=== PATIENT | male | born 1995 ===

== ENCOUNTER 2019-11-16 09:05 | Inpatient (IN) | payer SELFPAY ==
[2019-11-16 11:04] LABS: Bacteria,Urine 1+ /HPF (Negative); Bilirubin,Urine NEG (Negative); Blood,Urine NEG (Negative); Color,Urine Yellow (Yellow); Mucus,Urine FEW /HPF; Urobilinogen,Urine < 2.0 mg/dL (<2.0)
[2019-11-16] MEDS ORDERED: ONDANSETRON 4 MG/2 ML INJ IV ONE (11:11)
[2019-11-16] MEDS ORDERED: MORPHINE 4 MG/1 ML INJ IV ONE (11:11)
[2019-11-16] MEDS ORDERED: SODIUM CHLORIDE 0.9% 1000 ML 1,000 ML IV ONE (11:11)
[2019-11-16 11:12] LABS: Basophils % (Auto) 0.3 % (0.0-1.8); Eosinophils # (Auto) 0.1 K/mm3 (0.0-0.4); Eosinophils % (Auto) 0.4 % (0.0-4.3); Hematocrit 47.1 % (35.5-45.6); Hemoglobin 15.6 gm/dl (11.8-15.2); Lymphocytes # (Auto) 1.2 K/mm3 (1.2-5.4); Lymphocytes % (Auto) 8.7 % (13.4-35.0); Mean Corpuscular HGB Conc 33 % (32-34); Mean Corpuscular Volume 83 fl (84-94); Monocytes # (Auto) 0.8 K/mm3 (0.0-0.8); Monocytes % (Auto) 5.5 % (0.0-7.3); Platelet Count 226 K/mm3 (140-440); Red Blood Count 5.68 M/mm3 (3.65-5.03); Red Cell Distribution Width 12.6 % (13.2-15.2)
[2019-11-16 11:32] LABS: Alanine Aminotransferase 219 units/L (7-56); Albumin 4.6 g/dL (3.9-5); BUN/Creatinine Ratio 13; Blood Urea Nitrogen 9 mg/dL (9-20); Calcium 9.7 mg/dL (8.4-10.2); Hemolysis Index 9
--- NOTE | 2019-11-16 14:04 | Cat Scan Report ---
CT ABDOMEN AND PELVIS CONTRAST HISTORY: Abdominal pain for 2 days. COMPARISON: No relevant comparison imaging. TECHNIQUE: Routine abdominal and pelvic CT exam performed following intravenous contrast administrat ion.. 100 cc of Omnipaque 300 was injected intravenously without incident. Consent was obtained prior to the administration of the contrast. All CT scans at this location are performed using CT dose red uction for ALARA by means of automated exposure control. FINDINGS: CT ABDOMEN: Lung Bases: No significant abnormality. Liver: No significant abnormality. Biliary: No significant abnormality. Spleen: No significant abnormality. Unenlarged. Pancreas: No significant abnormality. Adrenals: No significant abnormality. Kidneys: No significant abnormality. Lymphatics: No lymphadenopathy. Vasculature: No significant abnormality. Bowel/Peritoneum: No significant abnormality. No free air. No free fluid. Inflamed wall thickened, di stended appendix with no periappendiceal abscess. The appendix measures 10 mm maximum dimension. Ther e is periappendiceal stranding and mild periappendiceal fluid. CT PELVIC: : Normal urinary bladder, prostate and seminal vesicles. Lymphatics: No lymphadenopathy. Osseous Structures: No aggressive appearing osseous lesions. Additional Findings: None IMPRESSION: 1. Acute appendicitis without rupture. 2. No other significant finding. Verbal report was given to Noah MAIN in the emergency department on 11/16/2019 at13:58 EST. Signer Name: Jeffery Hackett MD Signed: 11/16/2019 1:59 PM Workstation Name: [id number]
[2019-11-16] MEDS ORDERED: PIPERACIL/TAZOBACTA 4.5/NS 100 4.5 GM/100 ML VIAL IV ONE (14:11)
--- NOTE | 2019-11-16 14:22 | Emergency Department Report ---
ED Abdominal Pain HPI - General Chief Complaint: Abdominal Pain Stated Complaint: ABD PAIN Time Seen by Provider: 11/16/19 10:12 Source: patient, family Mode of arrival: Ambulatory Limitations: Language Barrier - History of Present Illness Initial Comments: This is a 24-year-old male nontoxic, well nourished in appearance, no acute signs of distress presents to the ED with c/o of nausea and vomiting and abdominal pain 1 day. Patient describes vomiting as food content and yellow gastric acid. Patient describes abdominal pain as cramping and aching with level of 10/10 to epigastric and RLQ. Patient denies chest pain, short of breath, fever, chills, headache, stiff neck, numbness or tingling. Patient denies any diarrhea or constipation. Patient denies any recent travels. Patient denies any allergies or significant PMH. MD Complaint: abdominal pain -: days(s) Location: RLQ, epigastric Radiation: none Migration to: no migration Severity: severe Severity scale (0 -10): 10 Quality: cramping, aching Consistency: constant Improves With: nothing Worsens With: nothing Associated Symptoms: nausea, vomiting. denies: diarrhea, fever, chills, constipation, dysuria, hematemesis, hematochezia, melena, hematuria, anorexia, syncope - Related Data Home Medications Medication Instructions Recorded Confirmed Last Taken No Known Home Medications [No 11/16/19 11/16/19 Unknown Reported Home Medications] Allergies Allergy/AdvReac Type Severity Reaction Status Date / Time No Known Allergies Allergy Unverified 11/16/19 09:08 ED Review of Systems ROS: Stated complaint: ABD PAIN Other details as noted in HPI Constitutional: denies: chills, fever Eyes: denies: eye pain, eye discharge, vision change ENT: denies: ear pain, throat pain Respiratory: denies: cough, shortness of breath, wheezing Cardiovascular: denies: chest pain, palpitations Endocrine: no symptoms reported Gastrointestinal: abdominal pain, nausea, vomiting. denies: diarrhea Genitourinary: denies: urgency, dysuria Musculoskeletal: denies: back pain, joint swelling, arthralgia Skin: denies: rash, lesions Neurological: denies: headache, weakness, paresthesias Psychiatric: denies: anxiety, depression Hematological/Lymphatic: denies: easy bleeding, easy bruising ED Past Medical Hx - Past Medical History Previous Medical History?: No - Surgical History Past Surgical History?: No - Social History Smoking Status: Never Smoker Substance Use Type: None - Medications Home Medications: Home Medications Medication Instructions Recorded Confirmed Last Taken Type No Known Home Medications [No 11/16/19 11/16/19 Unknown History Reported Home Medications] ED Physical Exam - General Limitations: Language Barrier General appearance: alert, in no apparent distress - Head Head exam: Present: atraumatic, normocephalic - Eye Eye exam: Present: normal appearance - Neck Neck exam: Present: normal inspection, full ROM. Absent: tenderness, meningismus, lymphadenopathy - Respiratory Respiratory exam: Present: normal lung sounds bilaterally. Absent: respiratory distress, wheezes, rales, rhonchi, stridor, chest wall tenderness, accessory muscle use, decreased breath sounds, prolonged expiratory - Cardiovascular Cardiovascular Exam: Present: regular rate, normal rhythm, normal heart sounds. Absent: bradycardia, tachycardia, irregular rhythm, systolic murmur, diastolic murmur, rubs, gallop - GI/Abdominal GI/Abdominal exam: Present: soft, tenderness (RLQ), normal bowel sounds. Absent: distended, guarding, rebound, rigid, diminished bowel sounds - Extremities Exam Extremities exam: Present: normal inspection, full ROM - Back Exam Back exam: Present: normal inspection, full ROM. Absent: tenderness, CVA tenderness (R), CVA tenderness (L), muscle spasm, paraspinal tenderness, vertebral tenderness, rash noted - Neurological Exam Neurological exam: Present: alert, oriented X3, normal gait - Psychiatric Psychiatric exam: Present: normal affect, normal mood - Skin Skin exam: Present: warm, dry, intact, normal color. Absent: rash ED Course Vital Signs 11/16/19 09:41 Temperature 97.3 F L Pulse Rate 70 Respiratory 18 Rate Blood Pressure 154/91 [Right] O2 Sat by Pulse 96 Oximetry - Reevaluation(s) Reevaluation #1: 11/16/19 14:20 Patient is speaking in full sentences with no signs of distress noted. ED Medical Decision Making - Lab Data Result diagrams: 11/16/19 10:37 11/16/19 10:37 - Medical Decision Making This is a 24-year-old male that presents with acute appendicitis. Patient is stable and was examined by me. Patient has been placed on n.p.o. Patient received Zosyn. Patient also received resuscitation in the ER. CT scan obtained dictated by radiologist. Dr. Gee consulted. Admitted with Dr. Cladwell. At time of discharge, the patient does not seem toxic or ill in appearance. No acute signs of distress noted. Patient agrees to admission treatment plan of care. No further questions noted by the patient. Critical care attestation.: If time is entered above; I have spent that time in minutes in the direct care of this critically ill patient, excluding procedure time. ED Disposition Clinical Impression: Acute appendicitis Qualifiers: Acute appendicitis type: unspecified acute appendicitis type Qualified Code(s): K35.80 - Unspecified acute appendicitis Nausea & vomiting Qualifiers: Vomiting type: unspecified Vomiting Intractability: non-intractable Qualified Code(s): R11.2 - Nausea with vomiting, unspecified Disposition: DC-09 OP ADMIT IP TO THIS HOSP Is pt being admited?: Yes Condition: Stable
[2019-11-16] MEDS ORDERED: MORPHINE 2 MG/1 ML INJ IV PRN (14:23)
--- NOTE | 2019-11-16 14:46 | Consultation ---
History of Present Illness Consult date: 11/16/19 Reason for consult: abdominal pain Chief complaint: Abdominal pain - History of present illness History of present illness: 24-year-old male with no past medical history presents to the emergency room wit h right lower quadrant abdominal pain since 4:00 this morning. The pain is severe and does not radiate. He states he has had pain similar to this about 4 or 5 months ago which resolved on its own. He states he has had several episodes of nonbilious/non-bloody emesis. No fevers, chills, chest pain, shortness of breath. His last meal was for lunch today which he tolerated. Past History Past Medical History: No medical history Past Surgical History: Other (Right flank wound closure) Social history: alcohol abuse (Several beers on the weekend) Family history: no significant family history Medications and Allergies Allergies Allergy/AdvReac Type Severity Reaction Status Date / Time No Known Allergies Allergy Unverified 11/16/19 09:08 Home Medications Medication Instructions Recorded Confirmed Last Taken Type No Known Home Medications [No 11/16/19 11/16/19 Unknown History Reported Home Medications] Active Meds: Active Medications Piperacillin Sod/Tazobactam Sod (Zosyn/Ns 4.5gm/100ml) 4.5 gm in 100 mls @ 200 mls/hr IV Q8HR RICARDO; Protocol Morphine Sulfate (Morphine) 2 mg IV Q4H PRN PRN Reason: Pain, Moderate (4-6) Review of Systems All systems: negative (10 point review of systems was performed and negative except for that listed in HPI) Exam Vital Signs Temp Pulse Resp BP Pulse Ox 97.3 F L 70 18 154/91 96 11/16/19 09:41 11/16/19 09:41 11/16/19 09:41 11/16/19 09:41 11/16/19 09:41 Narrative exam: Gen.: Awake, alert, oriented 3. No apparent distress ENT: No scleral icterus or conjunctival pallor CV: S1, S2 present Respiratory: No audible wheezes Abdomen: Soft, nondistended, positive tenderness to palpation in the right lower quadrant. Positive voluntary guarding. No rebound no rigidity. Well-healed right lower flank scar Extremities: No clubbing, cyanosis, edema Results - Labs 11/16/19 10:37 11/16/19 10:37 Abnormal lab results 11/16/19 11/16/19 11/16/19 Range/Units 10:37 10:37 10:47 WBC 13.9 H (4.5-11.0) K/mm3 RBC 5.68 H (3.65-5.03) M/mm3 Hgb 15.6 H (11.8-15.2) gm/dl Hct 47.1 H (35.5-45.6) % MCV 83 L (84-94) fl RDW 12.6 L (13.2-15.2) % Lymph % (Auto) 8.7 L (13.4-35.0) % Seg Neutrophils % 85.1 H (40.0-70.0) % Seg Neutrophils # 11.8 H (1.8-7.7) K/mm3 Creatinine 0.7 L (0.8-1.5) mg/dL Glucose 204 H (75-100) mg/dL AST 91 H (5-40) units/L ALT 219 H (7-56) units/L Alkaline Phosphatase 153 H (35-129) units/L Urine pH 8.0 H (5.0-7.0) Diabetes panel 11/16/19 Range/Units 10:37 Sodium 139 (137-145) mmol/L Potassium 4.3 (3.6-5.0) mmol/L Chloride 98.4 (98-107) mmol/L Carbon Dioxide 22 (22-30) mmol/L BUN 9 (9-20) mg/dL Creatinine 0.7 L (0.8-1.5) mg/dL Glucose 204 H (75-100) mg/dL Calcium 9.7 (8.4-10.2) mg/dL AST 91 H (5-40) units/L ALT 219 H (7-56) units/L Alkaline Phosphatase 153 H (35-129) units/L Total Protein 7.7 (6.3-8.2) g/dL Albumin 4.6 (3.9-5) g/dL Calcium panel 11/16/19 Range/Units 10:37 Calcium 9.7 (8.4-10.2) mg/dL Albumin 4.6 (3.9-5) g/dL Pituitary panel 11/16/19 Range/Units 10:37 Sodium 139 (137-145) mmol/L Potassium 4.3 (3.6-5.0) mmol/L Chloride 98.4 (98-107) mmol/L Carbon Dioxide 22 (22-30) mmol/L BUN 9 (9-20) mg/dL Creatinine 0.7 L (0.8-1.5) mg/dL Glucose 204 H (75-100) mg/dL Calcium 9.7 (8.4-10.2) mg/dL Adrenal panel 11/16/19 Range/Units 10:37 Sodium 139 (137-145) mmol/L Potassium 4.3 (3.6-5.0) mmol/L Chloride 98.4 (98-107) mmol/L Carbon Dioxide 22 (22-30) mmol/L BUN 9 (9-20) mg/dL Creatinine 0.7 L (0.8-1.5) mg/dL Glucose 204 H (75-100) mg/dL Calcium 9.7 (8.4-10.2) mg/dL Total Bilirubin 0.50 (0.1-1.2) mg/dL AST 91 H (5-40) units/L ALT 219 H (7-56) units/L Alkaline Phosphatase 153 H (35-129) units/L Total Protein 7.7 (6.3-8.2) g/dL Albumin 4.6 (3.9-5) g/dL - Imaging CT scan - abdomen: report reviewed, image reviewed CT scan - pelvis: report reviewed, image reviewed Assessment and Plan 24 yo M with acute appendicitis Plan: 1. Admit to hospitalist service 2. IVF 3. NPO 4. IV abx 5. prn pain control 6. DVT ppx 7. Recommend OR for laparoscopic appendectomy, possible open. Discussed all risks, benefits, alternatives to surgery with the patient and questions answered. The patient is agreeable to proceed to the OR. Consent was obtained. Thank you, please call with questions.
[2019-11-16] MEDS ORDERED: BUPIVACAINE/PF (0.5%) 5 MG/1 ML 30 ML VIAL INFILTRATI ONE ×2 (15:45→19:26)
[2019-11-16] MEDS ORDERED: LIDOCAINE (1%) 10 MG/1 ML VIAL 20 ML MDV ONE (15:45)
[2019-11-16] MEDS ORDERED: HYDROmorphone 1 MG/1 ML INJ IV PRN ×2 (16:12→20:43)
[2019-11-16] MEDS ORDERED: ACETAMINOPHEN 325 MG TAB PO PRN (16:12)
[2019-11-16] MEDS ORDERED: ONDANSETRON 4 MG/2 ML INJ IV PRN ×2 (16:12→20:43)
--- NOTE | 2019-11-16 16:18 | History and Physical Report ---
History of Present Illness Date of examination: 11/16/19 Date of admission: 11/16/2019 Chief complaint: Right lower quadrant pain and nausea with vomiting since 4 AM in the morning. History of present illness: 24-year-old Japanese-speaking male with no significant past medical history comes in for nausea and vomiting since 4 AM. Vomited about 3-4 times. Also has a r ight lower quadrant pain which is about 7-8 on a scale of 1-10. No fever or chills. There is the first episode. Pain is sharp. Intermittent in nature. Did not eat any restaurant food. No exacerbating or relieving factors. Pain is localized to the right lower quadrant noted with no radiation. No diaphoresis. No diarrhea. Past Medical History Previous Medical History?: No Surgical History Past Surgical History?: No Social History Smoking Status: Never Smoker Substance Use Type: None Family history - Medications Home Medications: Home Medications Medication Instructions Recorded Confirmed Last Taken Type No Known Home Medications [No 11/16/19 11/16/19 Unknown History Reported Home Medications] Review of Systems ROS: Stated complaint: ABD PAIN Other details as noted in HPI Constitutional: denies: chills, fever Eyes: denies: eye pain, eye discharge, vision change ENT: denies: ear pain, throat pain Respiratory: denies: cough, shortness of breath, wheezing Cardiovascular: denies: chest pain, palpitations Endocrine: no symptoms reported Gastrointestinal: abdominal pain, nausea, vomiting. denies: diarrhea, right lower quadrant pain Genitourinary: denies: urgency, dysuria Musculoskeletal: denies: back pain, joint swelling, arthralgia Skin: denies: rash, lesions Neurological: denies: headache, weakness, paresthesias Psychiatric: denies: anxiety, depression Hematological/Lymphatic: denies: easy bleeding, easy bruising Past History Past Medical History: No medical history Past Surgical History: Other (Right flank wound closure) Social history: alcohol abuse (Several beers on the weekend) Family history: no significant family history Medications and Allergies Allergies Allergy/AdvReac Type Severity Reaction Status Date / Time No Known Allergies Allergy Unverified 11/16/19 09:08 Home Medications Medication Instructions Recorded Confirmed Last Taken Type No Known Home Medications [No 11/16/19 11/16/19 Unknown History Reported Home Medications] Active Meds: Active Medications Piperacillin Sod/Tazobactam Sod (Zosyn/Ns 4.5gm/100ml) 4.5 gm in 100 mls @ 200 mls/hr IV Q8HR RICARDO; Protocol Morphine Sulfate (Morphine) 2 mg IV Q4H PRN PRN Reason: Pain, Moderate (4-6) Exam - Constitutional Vitals: Temp Pulse Resp BP Pulse Ox 98.3 F 67 20 121/61 99 11/16/19 15:28 11/16/19 15:28 11/16/19 15:28 11/16/19 15:28 11/16/19 15:28 General appearance: Present: no acute distress, well-nourished - EENT Eyes: Present: PERRL ENT: hearing intact, clear oral mucosa - Neck Neck: Present: supple, normal ROM - Respiratory Respiratory effort: normal Respiratory: bilateral: CTA - Cardiovascular Heart rate: 78 Rhythm: regular Heart Sounds: Present: S1 & S2. Absent: rub, click - Extremities Extremities: pulses symmetrical, No edema Peripheral Pulses: within normal limits - Abdominal General gastrointestinal: Present: soft, non-tender, non-distended, normal bowel sounds Localized gastrointestinal: tender: RLQ (Pain 6/10), guarding: RLQ Male genitourinary: Present: normal - Rectal Rectal Exam: deferred - Integumentary Integumentary: Present: clear, warm, dry - Musculoskeletal Musculoskeletal: gait normal, strength equal bilaterally - Psychiatric Psychiatric: appropriate mood/affect, intact judgment & insight - Neurologic Neurologic: CNII-XII intact, moves all extremities - Allied Health Allied health notes reviewed: nursing, case management Results - Labs CBC & Chem 7: 11/16/19 10:37 11/16/19 10:37 Labs: Laboratory Last Values WBC 13.9 K/mm3 (4.5-11.0) H 11/16/19 10:37 RBC 5.68 M/mm3 (3.65-5.03) H 11/16/19 10:37 Hgb 15.6 gm/dl (11.8-15.2) H 11/16/19 10:37 Hct 47.1 % (35.5-45.6) H 11/16/19 10:37 MCV 83 fl (84-94) L 11/16/19 10:37 MCH 28 pg (28-32) 11/16/19 10:37 MCHC 33 % (32-34) 11/16/19 10:37 RDW 12.6 % (13.2-15.2) L 11/16/19 10:37 Plt Count 226 K/mm3 (140-440) 11/16/19 10:37 Lymph % (Auto) 8.7 % (13.4-35.0) L 11/16/19 10:37 [place] % (Auto) 5.5 % (0.0-7.3) 11/16/19 10:37 Eos % (Auto) 0.4 % (0.0-4.3) 11/16/19 10:37 Baso % (Auto) 0.3 % (0.0-1.8) 11/16/19 10:37 Lymph # 1.2 K/mm3 (1.2-5.4) 11/16/19 10:37 [place] # 0.8 K/mm3 (0.0-0.8) 11/16/19 10:37 Eos # 0.1 K/mm3 (0.0-0.4) 11/16/19 10:37 Baso # 0.0 K/mm3 (0.0-0.1) 11/16/19 10:37 Seg Neutrophils % 85.1 % (40.0-70.0) H 11/16/19 10:37 Seg Neutrophils # 11.8 K/mm3 (1.8-7.7) H 11/16/19 10:37 Sodium 139 mmol/L (137-145) 11/16/19 10:37 Potassium 4.3 mmol/L (3.6-5.0) 11/16/19 10:37 Chloride 98.4 mmol/L (98-107) 11/16/19 10:37 Carbon Dioxide 22 mmol/L (22-30) 11/16/19 10:37 Anion Gap 23 mmol/L 11/16/19 10:37 BUN 9 mg/dL (9-20) 11/16/19 10:37 Creatinine 0.7 mg/dL (0.8-1.5) L 11/16/19 10:37 Estimated GFR > 60 ml/min 11/16/19 10:37 BUN/Creatinine Ratio 13 % 11/16/19 10:37 Glucose 204 mg/dL (75-100) H 11/16/19 10:37 Calcium 9.7 mg/dL (8.4-10.2) 11/16/19 10:37 Total Bilirubin 0.50 mg/dL (0.1-1.2) 11/16/19 10:37 AST 91 units/L (5-40) H 11/16/19 10:37 ALT 219 units/L (7-56) H 11/16/19 10:37 Alkaline Phosphatase 153 units/L (35-129) H 11/16/19 10:37 Total Protein 7.7 g/dL (6.3-8.2) 11/16/19 10:37 Albumin 4.6 g/dL (3.9-5) 11/16/19 10:37 Albumin/Globulin Ratio 1.5 % 11/16/19 10:37 Lipase 27 units/L (13-60) 11/16/19 10:37 Urine Color Yellow (Yellow) 11/16/19 10:47 Urine Turbidity Cloudy (Clear) 11/16/19 10:47 Urine pH 8.0 (5.0-7.0) H 11/16/19 10:47 Ur Specific [place] 1.026 (1.003-1.030) 11/16/19 10:47 Urine Protein 30 mg/dl mg/dL (Negative) 11/16/19 10:47 Urine Glucose (UA) 50 mg/dL (Negative) 11/16/19 10:47 Urine Ketones Neg mg/dL (Negative) 11/16/19 10:47 Urine Blood Neg (Negative) 11/16/19 10:47 Urine Nitrite Neg (Negative) 11/16/19 10:47 Urine Bilirubin Neg (Negative) 11/16/19 10:47 Urine Urobilinogen < 2.0 mg/dL (<2.0) 11/16/19 10:47 Ur Leukocyte Esterase Neg (Negative) 11/16/19 10:47 Urine WBC (Auto) 6.0 /HPF (0.0-6.0) 11/16/19 10:47 Urine RBC (Auto) 6.0 /HPF (0.0-6.0) 11/16/19 10:47 Urine Bacteria (Auto) 1+ /HPF (Negative) 11/16/19 10:47 Urine Mucus Few /HPF 11/16/19 10:47 Urine Yeast (Budding) 2+ /HPF 11/16/19 10:47 Short CBC 11/16/19 Range/Units 10:37 WBC 13.9 H (4.5-11.0) K/mm3 Hgb 15.6 H (11.8-15.2) gm/dl Hct 47.1 H (35.5-45.6) % Plt Count 226 (140-440) K/mm3 [facility] 11/16/19 10:37 Sodium 139 Potassium 4.3 Chloride 98.4 Carbon Dioxide 22 BUN 9 Creatinine 0.7 L Glucose 204 H Calcium 9.7 Liver Function 11/16/19 Range/Units 10:37 Total Bilirubin 0.50 (0.1-1.2) mg/dL AST 91 H (5-40) units/L ALT 219 H (7-56) units/L Alkaline Phosphatase 153 H (35-129) units/L Albumin 4.6 (3.9-5) g/dL Urine 11/16/19 Range/Units 10:47 Urine Color Yellow (Yellow) Urine pH 8.0 H (5.0-7.0) Ur Specific [place] 1.026 (1.003-1.030) Urine Protein 30 mg/dl (Negative) mg/dL Urine Glucose (UA) 50 (Negative) mg/dL Short CBC 11/16/19 Range/Units 10:37 WBC 13.9 H (4.5-11.0) K/mm3 Hgb 15.6 H (11.8-15.2) gm/dl Hct 47.1 H (35.5-45.6) % Plt Count 226 (140-440) K/mm3 [facility] 11/16/19 10:37 Sodium 139 Potassium 4.3 Chloride 98.4 Carbon Dioxide 22 BUN 9 Creatinine 0.7 L Glucose 204 H Calcium 9.7 Liver Function 11/16/19 Range/Units 10:37 Total Bilirubin 0.50 (0.1-1.2) mg/dL AST 91 H (5-40) units/L ALT 219 H (7-56) units/L Alkaline Phosphatase 153 H (35-129) units/L Albumin 4.6 (3.9-5) g/dL Urine 11/16/19 Range/Units 10:47 Urine Color Yellow (Yellow) Urine pH 8.0 H (5.0-7.0) Ur Specific [place] 1.026 (1.003-1.030) Urine Protein 30 mg/dl (Negative) mg/dL Urine Glucose (UA) 50 (Negative) mg/dL - Imaging and Cardiology CT scan - abdomen: report reviewed Imaging and Cardiology: CT abdomen IMPRESSION: 1. Acute appendicitis without rupture. 2. No other significant finding. Assessment and Plan Advance Directives: Yes (Full code) VTE prophylaxis?: Chemical Plan of care discussed with patient/family: Yes - Patient Problems (1) Acute appendicitis Current Visit: Yes Status: Acute Qualifiers: Acute appendicitis type: unspecified acute appendicitis type Qualified Code(s): K35.80 - Unspecified acute appendicitis Plan to address problem: Patient has acute appendicitis on the CT abdomen Clinically also acute appendicitis Surgery consult requested for possible appendectomy IV fluids Pain management (2) Nausea & vomiting Current Visit: Yes Status: Acute Qualifiers: Vomiting type: unspecified Vomiting Intractability: non-intractable Qualified Code(s): R11.2 - Nausea with vomiting, unspecified Plan to address problem: Secondary to appendicitis Continue Zofran 4 mg oral disintegrating tablets RRR IV Patient is kept n.p.o. (3) Dehydration Current Visit: Yes Status: Acute Plan to address problem: Secondary to persistent nausea and vomiting Clear fluids after surgery. (4) DVT prophylaxis Current Visit: Yes Status: Acute Plan to address problem: On SCDs and GI prophylaxis Heparin after the surgery.
--- NOTE | 2019-11-16 16:47 | Anesthesia Day of Surgery ---
Anesthesia Day of Surgery - Day of Surgery Patient Examined: Yes Patient H&P Reviewed: Yes Patient is NPO: No (Had pizza around 1230)
[2019-11-16] MEDS ORDERED: FAMOTIDINE 20 MG/2 ML INJ IV ONE (16:48)
--- NOTE | 2019-11-16 16:50 | Anesthesia Consultation ---
Anesthesia Consult and Med Hx Date of service: 11/16/19 - Airway Anesthetic Teeth Evaluation: Good, Partials Mental/Hyoid Distance: Adequate Mallampati Class: Class III Intubation Access Assessment: Probably Good - Pre-Operative Health Status ASA Pre-Surgery Classification: ASA2, Emergency Proposed Anesthetic Plan: General - Pulmonary Hx Smoking: No (Quit) - Endocrine Hx Liver Disease: Yes (Increased LFTs) Hx Non-Insulin Dependent Diabetes: Yes - Other Systems Hx Alcohol Use: Yes
[2019-11-16] MEDS: FAMOTIDINE 20 MG/2 ML INJ IV SCH ×2 (16:52→22:16)
[2019-11-16] MEDS ORDERED: D5W/0.9% NACL 1,000 ML IV SCH (17:00)
[2019-11-16] MEDS ORDERED: METOCLOPRAMIDE 10 MG/2 ML INJ IV ONE (17:00)
[2019-11-16] MEDS ORDERED: ROCURONIUM 50 MG/5 ML INJ IV ONE (18:20)
[2019-11-16] MEDS ORDERED: HYDROmorphone 1 MG/1 ML INJ ONE (18:20)
[2019-11-16] MEDS ORDERED: ONDANSETRON 4 MG/2 ML INJ ONE (18:20)
[2019-11-16] MEDS ORDERED: dexAMETHasone 20 MG/5 ML VIAL ONE (18:20)
[2019-11-16] MEDS ORDERED: LIDOCAINE MPF (2%) 20 MG/1 ML VIAL 5 ML ONE (18:21)
[2019-11-16] MEDS ORDERED: propofoL 200 MG/20 ML VIAL IV ONE (18:21)
[2019-11-16] MEDS ORDERED: LIDOCAINE (1%) 10 MG/1 ML VIAL 20 ML MDV INFILTRATI ONE (19:26)
[2019-11-16] MEDS ORDERED: LACTATED RINGERS 2,000 ML ONE (19:45)
[2019-11-16] MEDS ORDERED: GLYCOPYRROLATE 0.4 MG/2 ML INJ ONE (19:58)
[2019-11-16] MEDS ORDERED: NEOSTIGMINE 10MG/10 ML INJ MDV ONE (19:58)
[2019-11-16] MEDS ORDERED: oxyCODONE /ACETAMINOPHEN 5-325MG TAB PO PRN (20:10)
--- NOTE | 2019-11-16 20:10 | Post Operative Note ---
Pre-op diagnosis: acute appendicitis Post-op diagnosis: same Findings: gangrenous appendicitis without rupture Procedure: laparoscopic appendectomy Anesthesia: ADALIA, local Surgeon: CHIRAG FRANCISCO Estimated blood loss: minimal Pathology: list (appendix) Specimen disposition: to lab Condition: stable Disposition: PACU
[2019-11-16] MEDS ORDERED: DEXTROSE 50% IN WATER (25GM) 50 ML SYRINGE IV PRN (20:12)
--- NOTE | 2019-11-16 20:51 | Post Anesthesia Evaluation ---
- Post Anesthesia Evaluation Patient Participated: Yes Airway Patent: Yes Stable Respiratory Function: Yes Nausea/Vomiting: No Temp > 96.8F: Yes Pain Manageable: Yes Adequeate Hydration: Yes Anesthesia Complications: No Block Receding Appropriately: Not Applicable Patient on Ventilator: No
--- NOTE | 2019-11-16 21:49 | Operative Report ---
Operative Report Operative Report: Date of surgery: 11/16/19 Pre-op diagnosis: acute appendicitis Post-op diagnosis: same Findings: gangrenous appendicitis without rupture Procedure: laparoscopic appendectomy Anesthesia: ADALIA, local Surgeon: CHIRAG FRANCISCO Estimated blood loss: minimal Pathology: list (appendix) Specimen disposition: to lab Condition: stable Disposition: PACU HPI and indication: 24 yo M presented to ER with RLQ pain x24 hours, n/v. He was found to have an elevated WBC and acute appendicitis on CT scan. It was recommended that the patient undergo appendectomy. All risks, benefits, alternatives to surgery were discussed with the patient, all questions answered, and consent signed. Procedure in detail: Patient was identified in the preop area and taken back to the OR and placed on the OR table in supine position. After anesthesia was induced a salinas catheter was steriley placed by the circulating nurse. The left arm was tucked and all bony prominences padded appropriately. The abdomen was prepped and draped in the usual sterile fashion. A time out was performed. Local anesthetic (a mixture of 1% lidocaine/ 0.5% marcaine] was infilitrated into all skin incision sites. A supraumbilical incision was made and veress needle inserted. The positioning of the veress needle was confirmed using the saline drop test. The abdomen was then insufflated to 15mmHg. The veress needle was withdrawn and a 5mm trocar was placed using Optiview. The abdomen was inspected and no underlying injury to the abdominal structures was identified. A 5mm suprapubic trocar and a 12 mm LLQ trocar were placed under direct visualization. The patient was placed in trendelenberg position and tilted to the left. The appendix was visualized and noted to be gangrenous, inflamed. Adhesions from the appendix to the lateral abdominal wall were taken down using the harmonic. The base of the appendix was identified. The mesentery of the appendix was ligated using the harmonic scalpel. The base of the appendix was transected using an ethicon flex stapler 45mm white load. The appendix was placed into an endocatch bag and removed via the 12 mm port. This was passed off the table as specimen. The staple line and mesentery were then inspected and no bleeding visualized. This area was irrigated and hemostasis was ensured. The ports were removed under direct visualization and the abdomen desufflated. The 12mm port fascia was closed with a single interrupted 0 vicryl stitch. All skin incisions were closed using 4-0 monocryl subcuticular stitches and skin glue. At the end of the case, all sponge, instrument, sharp counts were correct x2. The patient was awoken from anesthesia, salinas catheter removed, and taken to PACU in stable condition.
[2019-11-16] MEDS: MORPHINE 2 MG/1 ML INJ IV PRN (22:14)
[2019-11-16] MEDS: PIPERACIL/TAZOBACTA 4.5/NS 100 4.5 GM/100 ML VIAL IV SCH (22:16)
[2019-11-17] MEDS: PIPERACIL/TAZOBACTA 4.5/NS 100 4.5 GM/100 ML VIAL IV SCH (05:20)
[2019-11-17 06:12] LABS: Basophils % (Auto) 0.2 % (0.0-1.8); Hematocrit 43.8 % (35.5-45.6); Hemoglobin 14.5 gm/dl (11.8-15.2); Lymphocytes % (Auto) 9.8 % (13.4-35.0); Mean Corpuscular HGB Conc 33 % (32-34); Mean Corpuscular Volume 84 fl (84-94); Monocytes # (Auto) 0.5 K/mm3 (0.0-0.8); Platelet Count 212 K/mm3 (140-440); Red Blood Count 5.24 M/mm3 (3.65-5.03); Red Cell Distribution Width 13.1 % (13.2-15.2)
[2019-11-17 06:42] LABS: Alanine Aminotransferase 149 units/L (7-56); Albumin 3.8 g/dL (3.9-5); BUN/Creatinine Ratio 11; Blood Urea Nitrogen 9 mg/dL (9-20); Hemolysis Index 13
--- NOTE | 2019-11-17 08:44 | Progress Note ---
Assessment and Plan - Patient Problems (1) Acute appendicitis Current Visit: Yes Status: Acute Qualifiers: Acute appendicitis type: unspecified acute appendicitis type Qualified Code(s): K35.80 - Unspecified acute appendicitis Plan to address problem: Pt. stable. s/p lap appy - POD#1. Patient appears to be doing well. Okay to discharge home from surgery standpoint. We discussed the importance of frequent walking and avoiding constipation. Patient is not to strain for at least 4 weeks. He is not to do any heavy lifting for at least 4 weeks. He may shower tomorrow and is instructed to pat dry wounds. I have asked him to call if there are any problems. He should follow-up with Dr Nilo Gee in about 10 to 14 days. He is to call for an appointment. Please call with questions. Subjective Date of service: 11/17/19 Patient Reports: Positive: no new complaints, feels better, tolerating a regular diet. Negative: nausea, vomiting Objective Vital Signs - 12hr 11/16/19 11/16/19 11/17/19 20:50 21:09 00:48 Temperature 98.4 F 98.1 F 98.2 F Pulse Rate 82 99 H Respiratory 18 18 Rate Blood Pressure 136/82 Blood Pressure 107/52 [Right] O2 Sat by Pulse 95 98 Oximetry 11/17/19 04:59 Temperature 98.7 F Pulse Rate 93 H Respiratory 18 Rate Blood Pressure Blood Pressure 122/78 [Right] O2 Sat by Pulse 98 Oximetry - General physical appearance no distress, no pain, obese, other (Tolerating regular breakfast.) - Respiratory normal expansion, normal respiratory effort - Abdomen soft, not tender, not distended, not guarding, not rigid, surgical scars (C/D/I) - Psychiatric oriented to time, oriented to person, oriented to place, speech is normal, memory intact - Labs 11/17/19 06:01 11/17/19 06:01 Diabetes panel 11/16/19 11/16/19 11/17/19 Range/Units 10:34 10:37 06:01 Sodium 139 137 (137-145) mmol/L Potassium 4.3 4.1 (3.6-5.0) mmol/L Chloride 98.4 99.7 (98-107) mmol/L Carbon Dioxide 22 21 L (22-30) mmol/L BUN 9 9 (9-20) mg/dL Creatinine 0.7 L 0.8 (0.8-1.5) mg/dL Glucose 204 H 263 H (75-100) mg/dL Hemoglobin A1c 7.9 H (4-6) % Calcium 9.7 9.0 (8.4-10.2) mg/dL AST 91 H 53 H (5-40) units/L ALT 219 H 149 H (7-56) units/L Alkaline Phosphatase 153 H 116 (35-129) units/L Total Protein 7.7 6.8 (6.3-8.2) g/dL Albumin 4.6 3.8 L (3.9-5) g/dL Calcium panel 11/16/19 11/17/19 Range/Units 10:37 06:01 Calcium 9.7 9.0 (8.4-10.2) mg/dL Albumin 4.6 3.8 L (3.9-5) g/dL Pituitary panel 11/16/19 11/17/19 Range/Units 10:37 06:01 Sodium 139 137 (137-145) mmol/L Potassium 4.3 4.1 (3.6-5.0) mmol/L Chloride 98.4 99.7 (98-107) mmol/L Carbon Dioxide 22 21 L (22-30) mmol/L BUN 9 9 (9-20) mg/dL Creatinine 0.7 L 0.8 (0.8-1.5) mg/dL Glucose 204 H 263 H (75-100) mg/dL Calcium 9.7 9.0 (8.4-10.2) mg/dL Adrenal panel 11/16/19 11/17/19 Range/Units 10:37 06:01 Sodium 139 137 (137-145) mmol/L Potassium 4.3 4.1 (3.6-5.0) mmol/L Chloride 98.4 99.7 (98-107) mmol/L Carbon Dioxide 22 21 L (22-30) mmol/L BUN 9 9 (9-20) mg/dL Creatinine 0.7 L 0.8 (0.8-1.5) mg/dL Glucose 204 H 263 H (75-100) mg/dL Calcium 9.7 9.0 (8.4-10.2) mg/dL Total Bilirubin 0.50 0.70 (0.1-1.2) mg/dL AST 91 H 53 H (5-40) units/L ALT 219 H 149 H (7-56) units/L Alkaline Phosphatase 153 H 116 (35-129) units/L Total Protein 7.7 6.8 (6.3-8.2) g/dL Albumin 4.6 3.8 L (3.9-5) g/dL
[2019-11-17 09:26] VITALS: BP 124/80
--- NOTE | 2019-11-17 09:46 | Discharge Summary ---
Providers - Providers Date of Admission: 11/16/19 15:45 Date of discharge: 11/17/19 Attending physician: THELMA HYATT 11/16/19 14:24 Consult to Physician [CONS] Stat Comment: Consulting Provider: CHIRAG FRANCISCO Physician Instructions: Reason For Exam: Acute appendicitis Primary care physician: [employer] Hospitalization Condition: Fair Disposition: DC-01 TO HOME OR SELFCARE - Discharge Diagnoses (1) Diabetes Status: Acute Qualifiers: Diabetes mellitus type: type 2 Comment: New onset (2) Diabetes Status: Acute (3) Diabetes mellitus type 2 in obese Status: Acute Core Measure Documentation - Palliative Care Palliative Care/ Comfort Measures: Not Applicable - Core Measures Any of the following diagnoses?: none Exam - Constitutional Vitals: Temp Pulse Resp BP Pulse Ox 98.8 F 94 H 98 H 124/80 98 11/17/19 08:00 11/17/19 08:00 11/17/19 08:00 11/17/19 08:00 11/17/19 04:59 Plan Diet: low fat, low cholesterol, low salt, diabetic Plan of Treatment: 1.Follow up with PCP or [facility] in 1 week. 2.Follow up with Dr. Francisco, Surg in 1-2 weeks 3.Check fingerstick glucose before every meal and at bedtime and show report to Doctor. Follow up with: CHIRAG FRANCISCO DO [Staff Physician] - 14 Days PRIMARY CARE, [Primary Care Provider] - 7 Days Prescriptions: glipiZIDE [Glucotrol] 5 mg PO BID #60 tablet oxyCODONE /ACETAMINOPHEN [Percocet 5/325 mg] 1 tab PO Q4H PRN #15 tablet PRN Reason: Pain, Moderate (4-6)
[2019-11-17] MEDS: MORPHINE 2 MG/1 ML INJ IV PRN (10:42)
[2019-11-17] MEDS: FAMOTIDINE 20 MG/2 ML INJ IV SCH (10:46)
== END 2019-11-17 13:00 | disposition home or self-care (01) | DRG 343 ==
LOC: ED 09:05 → 3A 15:45 → 3B-SURG 17:42
PROVIDERS: ADMIT Internal Medicine; ATTEND Internal Medicine
PROC: 0DTJ4ZZ Resection of Appendix, Percutaneous Endoscopic Approach (ICD-10-PCS; principal; 2019-11-16)
DX: K35.891 Other acute appendicitis without perforation, with gangrene (principal); R11.2 Nausea with vomiting, unspecified; F10.10 Alcohol abuse, uncomplicated; E86.0 Dehydration; E11.9 Type 2 diabetes mellitus without complications; E66.9 Obesity, unspecified; Z68.34 Body mass index [BMI] 34.0-34.9, adult
CPT/HCPCS: 36415; 74177; 80053; 81001; 82962; 83036; 83690; 85025; 88304; G0378; J1100; J1170; J2270; J2405; J2543; J2704; J2710; J2765; J7030; J7042; J7120; Q9967